=== PATIENT | female | born 1970 | race Caucasian/White ===

== ENCOUNTER 2021-01-15 07:43 | Emergency (ER) | payer MEDICAID ==
[~2021-01-15] VITALS: Ht 157.5 cm; Wt 71.3 kg
[2021-01-15 07:51] VITALS: BP 124/77
--- NOTE | 2021-01-15 08:08 | NUR ---
CONTACT WITH PT, "I WAS AT [employer] ON THE STAGE AND I FELL DOWN 2 STAIRS" C/O LEFT SHOULDER AND ARM PAIN. "HIT MY HEAD" DENIES LOC.
--- NOTE | 2021-01-15 09:46 | NUR ---
PT SITTING ON GURNEY, DRESSED AND READY TO GO. PT PROVIDED WITH ICE PACK AND SLING TO USE "WHEN ICING MY ARM" NO IV TO DC, REVIEWED DC INSTRUCTIONS WITH PT. UNDERSTANDING VERBALIZED. PT LEFT AMB, GAIT STEADY.
== END 2021-01-15 09:49 | disposition home or self-care (01) ==
LOC: ED 09:46
DX: S40.012A Contusion of left shoulder, initial encounter (principal); S50.02XA Contusion of left elbow, initial encounter; S50.12XA Contusion of left forearm, initial encounter; F17.200 Nicotine dependence, unspecified, uncomplicated; W01.0XXA Fall on same level from slipping, tripping and stumbling without subsequent striking against object, initial encounter; Y93.89 Activity, other specified; Y92.22 Religious institution as the place of occurrence of the external cause; Y99.8 Other external cause status
CPT/HCPCS: 99284